=== PATIENT | female | born 1985 | race Caucasian/White ===

== ENCOUNTER 2020-06-02 12:38 | Emergency (ER) | payer OTHER ==
[~2020-06-02] VITALS: Ht 162.6 cm; Wt 113.4 kg
[2020-06-02 13:55] LABS: INFLUENZA A ANTIGEN Negative (Negative); INFLUENZA B ANTIGEN Negative (Negative)
== END 2020-06-02 14:20 | disposition home or self-care (01) ==
LOC: M.ERS 12:38
PROVIDERS: Physician Assistant
DX: U07.1 COVID-19 (principal); M06.9 Rheumatoid arthritis, unspecified; E03.9 Hypothyroidism, unspecified

== ENCOUNTER 2020-06-13 15:46 | Emergency (ER) | payer OTHER ==
[~2020-06-13] VITALS: Ht 162.6 cm; Wt 112.0 kg
[2020-06-13 15:51] VITALS: BP 151/94
[2020-06-13] MEDS ORDERED: XATMEP2.5 MG/1 M SUBQ (15:55)
[2020-06-13] MEDS ORDERED: PREDNISONE 10 M10 MG PO (16:12)
[2020-06-13] MEDS ORDERED: PEPCID20 MG PO (16:12)
== END 2020-06-13 17:52 | disposition home or self-care (01) ==
LOC: M.ERS 15:46
DX: T78.1XXA Other adverse food reactions, not elsewhere classified, initial encounter (principal); E03.9 Hypothyroidism, unspecified; M06.9 Rheumatoid arthritis, unspecified; Z88.1 Allergy status to other antibiotic agents; Z88.6 Allergy status to analgesic agent; X58.XXXA Exposure to other specified factors, initial encounter

== ENCOUNTER 2021-07-03 09:40 | Emergency (ER) | payer OTHER ==
[~2021-07-03] VITALS: Ht 162.6 cm; Wt 106.1 kg
[~2021-07-03 09:40] MED LIST: PEPCID20 MG PO; PREDNISONE 10 M10 MG PO; XATMEP2.5 MG/1 M SUBQ
[2021-07-03 11:15] LABS: INFLUENZA A ANTIGEN Negative (Negative); INFLUENZA B ANTIGEN Negative (Negative)
[2021-07-03 11:27] LABS: ABSOLUTE BASOPHILS 0.1 thou/uL (0.0-0.2); ABSOLUTE EOSINOPHILS 0.1 thou/uL (0.0-0.7); ABSOLUTE LYMPHOCYTES 1.2 thou/uL (0.8-5.3); ABSOLUTE MONOCYTES 0.6 thou/uL (0.0-1.2); ABSOLUTE NEUTROPHILS 5.7 thou/uL (1.6-8.1); BASOPHILS 0.9 %; EOSINOPHILS 1.1 %; HEMATOCRIT 36.1 % (37.0-47.0); HEMOGLOBIN 12.3 gm/dL (12.0-15.0); LYMPHOCYTES 16.1 %; MCH 30.9 pg (26.0-34.0); MCV 90.7 fL (80.0-100.0); MONOCYTES 8.2 %; MPV 7.3 fl. (7.2-11.1); NUCLEATED RBCS 0 /100WBC; PLATELET COUNT* 236 thou/uL (150-400); POLYS 73.7 %; RBC 3.98 mil/uL (4.20-5.00); RDW-CV 13.6 % (10.5-14.5); WBC 7.7 thou/uL (4.0-11.0)
[2021-07-03 11:37] LABS: CALCIUM 8.5 mg/dL (8.5-10.1); CREATININE 0.8 mg/dL (0.6-1.3); POTASSIUM 3.2 mmol/L (3.5-5.1)
[2021-07-03] MEDS ORDERED: LEVOFLOXACIN500 MG PO (13:44)
[2021-07-03] MEDS ORDERED: PROAIR HFA8.5 GM INH (13:45)
[2021-07-03 14:15] VITALS: BP 112/72
== END 2021-07-03 14:16 | disposition home or self-care (01) ==
LOC: M.ERS 09:40
PROVIDERS: Physician Assistant
DX: J18.9 Pneumonia, unspecified organism (principal); Z20.822 Contact with and (suspected) exposure to COVID-19; M19.90 Unspecified osteoarthritis, unspecified site; E03.9 Hypothyroidism, unspecified; Z88.6 Allergy status to analgesic agent; Z88.1 Allergy status to other antibiotic agents